=== PATIENT | female | born 1980 | race Caucasian/White ===

== ENCOUNTER → 2019-08-15 | Outpatient (CLI) | payer BC ==
[2015-04-16 04:43] VITALS: BP 131/88
[~2019-08-15] MED LIST: AMIT10TA PO; DIPH25CA58 PO; FLUO40CA9 PO; MULT-246 PO; OMEG300C PO; OMEP20TA63 PO
--- NOTE | 2019-08-15 17:39 | RAD ---
Examination: 1. Left digital diagnostic mammogram. 2. Targeted left breast ultrasound. INDICATION: 39-year-old woman recalled from baseline mammographic screening for asymmetry in the superior left breast best seen on the MLO view. COMPARISON: 08/13/2019 bilateral mammogram. FINDINGS: Additional views of the left breast including CC and ML views with 2-D and 3-D technique and a spot compression MLO view with 2-D technique reveal heterogeneously dense breast parenchyma with no dominant mass, architectural distortion or suspicious calcifications. The asymmetry recalled from screening changed configuration in a pattern compatible with benign overlap of fibroglandular tissue. Given the dense breast tissue, additional imaging by targeted ultrasound of the superior left breast was performed showing dense fibroglandular tissue with no suspicious sonographic findings. IMPRESSION: Negative targeted left breast ultrasound and left diagnostic mammogram. No evidence of malignancy. Recommend return to routine screening next due in one year. BI-RADS Category 1 Negative Patient entered into a reminder system with target due date for next mammogram. BI-RADS 1 -- negative findings (within normal)
== END | disposition home or self-care (01) ==
LOC: MAMMO 14:37
PROVIDERS: ATTEND Specialist
DX: R92.8 Other abnormal and inconclusive findings on diagnostic imaging of breast (principal)
CPT/HCPCS: 76641; 77065; G0279; 77061

== ENCOUNTER 2020-03-24 13:56 | Emergency (ER) | payer BC ==
[~2020-03-24] VITALS: Ht 160 cm; Wt 63.4 kg
[2020-03-24] MEDS ORDERED: LORazepam 1 MG TABLET PO ONE (14:30)
--- NOTE | 2020-03-24 14:31 | PHYS DOC ---
Past History Past Medical History: Anxiety, Depression Past Surgical History: , Tonsillectomy Smoking: Quit Greater Than 1 Year Alcohol Use: Occasionally Drug Use: None General Adult EDM: Chief Complaint: Anxiety HPI: HPI: Patient is a 40 y/o female with a history of anxiety who presents to the ED with feeling anxious and overwhelmed for the past week. She reports she has been having trouble eating and sleeping since then. Patient recently has been having mucous in her stool and has a meeting with a GI specialist coming up, she states that this health concern is causing her to feel anxious and unable to relax. Patient denies SI, HI, or audio/visual hallucinations. Review of Systems: Review of Systems: Constitutional: Denies fever or chills Eyes: Denies redness or eye pain HENT: Denies nasal congestion or sore throat Respiratory: Denies cough or shortness of breath Cardiovascular: Denies chest pain or palpitations GI: Denies abdominal pain, nausea, or vomiting : Denies dysuria or hematuria Musculoskeletal: Denies back pain or joint pain Integument: Denies rash or skin lesions Neurologic: Reports feeling anxious and overwhelmed, Denies headache, focal weakness or sensory changes Complete systems were reviewed and found to be within normal limits, except as documented in this note. Current Medications: Current Meds: Current Medications Medications (Trade) Dose Ordered Sig/Gucci Start Time Stop Time Status Last Admin Dose Admin Lorazepam (Ativan) 0.5 mg 1X ONCE 03/24/20 14:30 03/24/20 14:31 UNV Allergies: Allergies: Allergies Coded Allergies Type Severity Reaction Last Updated Verified sulfamethoxazole Allergy Unknown 06/16/14 No trimethoprim Allergy Unknown 06/16/14 No cefaclor Adverse Reaction Intermediate 06/16/14 Yes Physical Exam: PE: Constitutional: Well developed, well nourished, non-toxic appearance, HENT: Normocephalic, atraumatic Eyes: PERRL, EOMI, conjunctiva normal, no discharge Neck: Normal range of motion, no tenderness, supple Lungs & Thorax: No respiratory distress, equal chest rise and fall Abdomen: Soft, no tenderness Skin: Warm, dry, no erythema, no rash Back: No tenderness, no CVA tenderness Extremities: No tenderness, ROM intact, no edema Neurologic: Alert and oriented X 3, normal motor function, normal sensory function, no focal deficits noted Psychologic: Patient appears tearful on exam EKG: EKG: [] Radiology/Procedures: Radiology/Procedures: [] Course & Med Decision Making: Course & Med Decision Making Patient is a 40-year-old female presents with feeling anxious and overwhelmed. Patient recently has found mucus in her stools and has a GI follow-up. She is worried about possible cancer and has been anxious. Patient was given lorazepam in the ED and improved discussed plan to follow-up with her GI. Patient stable for discharge with outpatient follow-up with PCP. Discussed findings and plan with patient, who acknowledges understanding and agreement. Dragon Disclaimer: Dragon Disclaimer: This electronic medical record was generated, in whole or in part, using a voice recognition dictation system. Departure Departure: Impression: Primary Impression: Anxiety Disposition: 01 DC HOME SELF CARE/HOMELESS Condition: STABLE Referrals: GÓMEZ MORALES MD (PCP) Patient Instructions: Anxiety and Panic Attacks, [id number] Scripts Lorazepam (ATIVAN ) 0.5 Mg Tablet 0.5 MG PO PRN TID PRN for ANXIETY, #10 TAB Prov: АНДРЕЙ TRIMBLE DO 03/24/20 АНДРЕЙ TRIMBLE DO Mar 24, 2020 14:31
[2020-03-24] MEDS ORDERED: LORA0.5T21 PO (15:34)
[2020-03-24 15:46] VITALS: BP 148/101
== END 2020-03-24 15:46 | disposition home or self-care (01) ==
LOC: ER 13:56
DX: F41.9 Anxiety disorder, unspecified (principal); F32.9 Major depressive disorder, single episode, unspecified; Z87.891 Personal history of nicotine dependence; Z88.2 Allergy status to sulfonamides; Z88.1 Allergy status to other antibiotic agents
CPT/HCPCS: 99283

== ENCOUNTER → 2020-04-07 | Outpatient (CLI) | payer BC ==
[2020-03-24 15:46] VITALS: BP 148/101
[~2020-04-07] MED LIST changes: +BUPR150T8 PO; +BUSP10TA PO; +LORA0.5T21 PO
== END ==
LOC: LAB 13:16
PROVIDERS: ATTEND Nurse Anesthetist, Certified Registered
DX: Z01.812 Encounter for preprocedural laboratory examination (principal); K21.9 Gastro-esophageal reflux disease without esophagitis; R13.10 Dysphagia, unspecified; Z20.828 Contact with and (suspected) exposure to other viral communicable diseases
CPT/HCPCS: U0003

== ENCOUNTER → 2020-04-10 | Day surgery (SDC) | payer BC ==
[~2020-04-10] MED LIST changes: +IPRATRPIUM/ALBUTEROL 0.5/2.5MG 3 ML NEBU. NEB PRN; +IV RINGERS SOLUTION,LACTATED 1,000 ML IV SCH; +MIDAZOLAM HCL PF 2 MG/2 ML VIAL. IV ONE; +MIDAZOLAM HCL PF 2 MG/2 ML VIAL. ONE; +ONDANSETRON PF 4 MG/2 ML VIAL. IV PRN; +PROPOFOL 10,000 MCG/ML (20ML) VIAL IV ONE
[2020-04-10 10:27] LABS: U PREG PATIENT NEGATIVE (NEG)
[2020-04-10 11:54] VITALS: BP 126/77
--- NOTE | 2020-04-15 22:09 | PATHOLOGY ---
[facility] Accession Number: [id number] . 01 Material submitted: . PART A: stomach - ANTRUM BIOPSY PART B: esophagus - ESOPHAGEAL BIOPSY PART C: esophagus - PROXIMAL ESOPHAGEAL. Modifiers: proximal . 02 Diagnosis: A. "Antrum BX", biopsy: - Gastric mucosa with mild reactive changes and minimal chronic inflammation. - Negative H. pylori immunohistochemical stain (block A1); control reacted appropriately. . B. "Esophageal BX" biopsy: - Esophageal squamous mucosa with mild reactive changes; no significant inflammation (including eosinophils), glandular epithelium or dysplasia seen. . C. "Proximal esophageal", biopsy: - Esophageal squamous mucosa with mild reactive changes; no significant inflammation (including eosinophils), glandular epithelium or dysplasia seen. ([facility] 04/15/2020) [facility] 04/15/2020 1222 Local . 02 Comment: Clinical and endoscopic correlation is recommended. ([facility] 04/15/2020) . 02 Electronically signed: . Oly Mancera MD, Pathologist NPI- [id number] . 01 Gross description: . A. The specimen is received in formalin, labeled "Santiago, Tasha, antrum BX" and consists of a fragment ramos tissue measuring 0.6 x 0.3 cm which is entirely submitted in A1. . B. The specimen is received in formalin, labeled "Santiago, Tasha, esophageal BX" and consists of a fragment of pink-ramos tissue measuring 0.6 x 0.3 cm which is entirely submitted in B1. . C. The specimen is received in formalin, labeled "Santiago, Tasha, proximal esophagus" and consists of a fragment of pink-ramos tissue measuring 0.4 x 0.2 cm which is entirely submitted in C1. ([facility]; 04/14/2020) [facility] 04/15/2020 1219 Local . 02 Pathologist provided ICD-10: K29.50 . 02 CPT . 936098, 805291, 340431, T11170 Specimen Comment: A courtesy copy of this report has been sent to [phone] Specimen Comment: [phone] Specimen Comment: Report sent to / DR MORALES Performed at: 01 [facility] [address], [place] [id number] MD Jaime Connors MD Phone: [phone] Performed at: 02 [facility] [address] [place], [place] [id number] MD Keyur Stevens MD Phone: [phone]
== END | disposition home or self-care (01) ==
LOC: SURG 09:47
PROVIDERS: ATTEND Internal Medicine Gastroenterology
DX: R13.10 Dysphagia, unspecified (principal); R12 Heartburn; K44.9 Diaphragmatic hernia without obstruction or gangrene; K22.2 Esophageal obstruction; K29.50 Unspecified chronic gastritis without bleeding; F41.9 Anxiety disorder, unspecified; F32.9 Major depressive disorder, single episode, unspecified; K21.9 Gastro-esophageal reflux disease without esophagitis; Z88.2 Allergy status to sulfonamides; Z88.1 Allergy status to other antibiotic agents; Z88.8 Allergy status to other drugs, medicaments and biological substances; Z98.890 Other specified postprocedural states; Z87.891 Personal history of nicotine dependence; Z79.899 Other long term (current) drug therapy; Z72.89 Other problems related to lifestyle; Z82.49 Family history of ischemic heart disease and other diseases of the circulatory system
CPT/HCPCS: 43239; 43450; 81025; J2250; J2704; J7120

== ENCOUNTER 2020-09-21 22:44 | Emergency (ER) | payer BC ==
[~2020-09-21] VITALS: Ht 162.6 cm; Wt 65.3 kg
[~2020-09-21 22:44] MED LIST changes: -IPRATRPIUM/ALBUTEROL 0.5/2.5MG 3 ML NEBU. NEB PRN; -IV RINGERS SOLUTION,LACTATED 1,000 ML IV SCH; -MIDAZOLAM HCL PF 2 MG/2 ML VIAL. IV ONE; -MIDAZOLAM HCL PF 2 MG/2 ML VIAL. ONE; -ONDANSETRON PF 4 MG/2 ML VIAL. IV PRN; -PROPOFOL 10,000 MCG/ML (20ML) VIAL IV ONE
--- NOTE | 2020-09-21 23:08 | PHYS DOC ---
Past History Past Medical History: Anxiety, Depression, GERD Past Surgical History: Hysterectomy, Other Additional Past Surgical Histo: colonoscopy- polyp removed Smoking: Quit Greater Than 1 Year Alcohol Use: Occasionally Drug Use: None General Adult EDM: Chief Complaint: VAGINAL BLEEDING HPI: HPI: "..I had a hysterectomy on 08/27 in [place]... I had some high risk cervical lesions and they recommended hysterectomy... Everything went fine after the surgery and I have been taking ibuprofen for discomfort.... Patient started noticed some spotting past week... But now has active bleeding vaginally and some large blood clots.... Patient is a 40 year old female who presents with above hx and complaints of increased bleeding with discomfort post hysterectomy on 08/27. Patient had the hysterectomy in [facility] completed by . Patient did talk to the surgeon on-call tonight and advised her to go to the emergency department. Patient is not on any anticoagulants and has no history of coagulopathy. Patient has been taking 800 mg of ibuprofen every 8 hours. Patient denies any trauma. No sexual activity since surgery. No history of trauma. . The patient denies any history of immune suppression. No recent travel outside the [facility] area. Normally healthy. Covid test was negative for surgery on 08/27. Patient normally follows with Dr. Lewis. Review of Systems: Review of Systems: Constitutional: Denies fever or chills Eyes: Denies change in visual acuity HENT: Denies nasal congestion or sore throat Respiratory: Denies cough or shortness of breath Cardiovascular: Denies chest pain or edema GI: Denies abdominal pain, nausea, vomiting, bloody stools or diarrhea : Denies dysuria. Complains of vaginal bleeding Musculoskeletal: Denies back pain or joint pain Integument: Denies rash Neurologic: Denies headache, focal weakness or sensory changes Endocrine: Denies polyuria or polydipsia Lymphatic: Denies swollen glands Psychiatric: Denies depression or anxiety Family History: Family History: Mother has hypercoagulability-pulmonary embolism Current Medications: Current Meds: See nursing for home meds Allergies: Allergies: Allergies Coded Allergies Type Severity Reaction Last Updated Verified iodine Allergy Severe swelling 09/21/20 Yes sulfamethoxazole Allergy Intermediate 09/21/20 No trimethoprim Allergy Intermediate 09/21/20 No cefaclor Adverse Reaction Unknown 09/21/20 Yes Physical Exam: PE: Constitutional: Well developed, well nourished, moderate acute distress, non- toxic appearance. [] HENT: Normocephalic, atraumatic, bilateral external ears normal, oropharynx moist, no oral exudates, nose normal. [] Eyes: PERRLA, EOMI, conjunctiva normal, no discharge. [] Neck: Normal range of motion, no tenderness, supple, no stridor. [] Cardiovascular:Heart rate regular rhythm, no murmur [] Lungs & Thorax: Bilateral breath sounds clear to auscultation [] Abdomen: Bowel sounds normal, soft, lower pelvic tenderness, no masses, no pulsatile masses. [] Vaginal exam-active bleeding along the vaginal cuff. Soaked approximately sixteen 4 x 4's. Vaginal packed with Kerlix x2. Reexam in approximately 0330 hrs. still having bleeding along vaginal cuff repacked with 1 Kerlix soaked in Tranexamic Acid. Post surgical cuff appeared to be grossly intact. Skin: Warm, dry, no erythema, no rash. [] Capillary refill less than 2 seconds in fingers. Back: No tenderness, no CVA tenderness. [] Extremities: No tenderness, no cyanosis, no clubbing, ROM intact, no edema. [] Neurologic: Alert and oriented X 3, normal motor function, normal sensory function, no focal deficits noted. [] Psychologic: Affect anxious, judgement normal, mood normal. [] Current Patient Data: Vital Signs: Vital Signs Date Time Temp Pulse Resp B/P (MAP) Pulse Ox O2 Delivery O2 Flow Rate FiO2 09/21/20 22:52 98.2 90 18 157/103 (121) 96 Room Air EKG: EKG: [] Radiology/Procedures: Radiology/Procedures: [address] [address] IMAGING REPORT Signed PATIENT: GRAY CORONADO ACCOUNT: [id number] : 1980 LOCATION: ER AGE: 40 SEX: F EXAM STATUS: REG ER ORD. PHYSICIAN: VERN CHAN MD REASON: pain PROCEDURE: ACUTE ABDOMEN SERIES Acute Abdominal Series: Technique: PA view of the chest and supine and upright views of the abdomen were obtained. History: Pain. Comparison: None. Findings: The lungs and pleural margins are clear. There is air and stool scattered throughout the colon. There is a paucity small bowel gas. There is no free air. Impression: Constipation. Electronically signed by: Shahzad Murillo III, MD (09/22/2020 12:49 AM) [facility] DICTATED AND SIGNED BY: SHAHZAD MURILLO III, MD DATE: 09/22/20 0049 CC: VERN CHAN MD; GÓMEZ LEWIS MD ~MTH0 0 [][address] [address] IMAGING REPORT Signed PATIENT: GRAY CORONADO ACCOUNT: [id number] : 1980 LOCATION: ER AGE: 40 SEX: F EXAM STATUS: REG ER ORD. PHYSICIAN: VERN CHAN MD REASON: pain- post surgery, 900ml READI-CAT2 PROCEDURE: CT ABD PEL W/ORAL CONTRST ONLY Abdominal and Pelvis CT, Without Contrast: History: Reason: pain- post surgery, 900ml READI-CAT2 / Spl. Instructions: iodine allergy / History: Comparison: None. Procedure: Axial images are obtained of the abdomen and pelvis, without IV but with oral contrast. Oral Contrast: Yes Findings: Evaluation of solid organs is limited without contrast. There is air and stool scattered the colon. The uterus is not seen and may be surgically removed however there is distention of the vaginal vault there is debris which could be packing. The urinary bladder is fairly distended but otherwise appears normal. The appendix is normal. The gallbladder is not fully distended but appears normal. There is a 4.3 x 3.1 cm left adnexal cyst. Liver: Normal. Spleen: Normal. Pancreas: Normal. Adrenal Glands: Normal. Kidneys: Normal. There is no free air or free fluid. There is no lymphadenopathy. There is no pericolonic inflammation identified. Impression: 1. The urinary bladder is fully distended measuring 14.6 x 10.9 x 13.1 cm. Consider post op urinary retention. 2. Left ovarian cyst is seen in the November 11, 2015 ultrasound examination. Consider a 6 month follow-up ultrasound. 3. Probable hysterectomy with packing of the vaginal vault. Correlate with patient's surgical history. 4. Constipation. End impression PQRS Compliance Statement: One or more of the following individualized dose reduction techniques were utilized for this examination: 1. Automated exposure control 2. Adjustment of the mA and/or kV according to patient size 3. Use of iterative reconstruction technique Electronically signed by: Shahzad Murillo III, MD (09/22/2020 2:51 AM) [facility] DICTATED AND SIGNED BY: SHAHZAD MURILLO III, MD DATE: 09/22/20 0244 CC: VERN HCAN MD; GÓMEZ LEWIS MD ~MTH0 0 Heart Score: C/O Chest Pain: N/A Risk Factors: Risk Factors: DM, Current or recent (<one month) smoker, HTN, HLP, family his tory of CAD, obesity. Risk Scores: Score 0 - 3: 2.5% MACE over next 6 weeks - Discharge Home Score 4 - 6: 20.3% MACE over next 6 weeks - Admit for Clinical Observation Score 7 - 10: 72.7% MACE over next 6 weeks - Early Invasive Strategies Course & Med Decision Making: Course & Med Decision Making Pertinent Labs and Imaging studies reviewed. (See chart for details) Discussed history, presentation, testing and treatment plan with Dr. Smith salesperson women's dresses for Dr. Meléndez. Report also given to Dr. Hari ROBERSON at [facility]- in the event patient became unstable on her direct admit to surgical floor. Trial of traneamic acid 1000 mg IV and Vaginal area packed with Kerlex soaked in 1000mg . Impression: 1. Vaginal Bleeding Post hysterectomy on 08/27/2020 2. Rapid COVID negative tonight [] Dragon Disclaimer: Dragon Disclaimer: This electronic medical record was generated, in whole or in part, using a voice recognition dictation system. Departure Departure: Referrals: GÓMEZ LEWIS MD (PCP) Karthik Disclaimer This chart was dictated in whole or in part using Voice Recognition software in a busy, high-work load, and often noisy Emergency Department environment. It may contain unintended and wholly unrecognized errors or omissions. Dragon Disclaimer This chart was dictated in whole or in part using Voice Recognition software in a busy, high-work load, and often noisy Emergency Department environment. It may contain unintended and wholly unrecognized errors or omissions. VERN CHAN MD Sep 21, 2020 23:07
[2020-09-21] MEDS ORDERED: IV RINGERS SOLUTION,LACTATED 1,000 ML IV SCH (23:30)
[2020-09-22 00:11] LABS: BASO # 0.2 x10^3/uL (0.0-0.2); BASO % 2 % (0-3); EOS # 1.1 x10^3/uL (0.0-0.7); EOS % 13 % (0-3); HEMOGLOBIN 12.1 g/dL (12.0-15.5); LYMPH % 44 % (24-48); MEAN CORPUSCULAR HEMOGLOBIN 31 pg (25-35); MEAN CORPUSCULAR HGB CONC 34 g/dL (31-37); MEAN CORPUSCULAR VOLUME 91 fL (79-100); MONO # 0.6 x10^3/uL (0.0-1.1); MONO % 7 % (0-9); NEUT # 3.1 x10^3uL (1.8-7.7); NEUT % 34 % (31-73); PLATELET COUNT 406 x10^3/uL (140-400); RED BLOOD COUNT 3.84 x10^6/uL (3.50-5.40); WHITE BLOOD COUNT 8.9 x10^3/uL (4.0-11.0)
[2020-09-22 00:24] LABS: BILIRUBIN,URINE NEG (NEG); CLARITY,URINE CLEAR; COLOR,URINE YELLOW; GLUCOSE,URINE NEG (NEG); NITRITE,URINE NEG (NEG); UROBILINOGEN,URINE 0.2 mg/dL (0.2 mg/dL)
[2020-09-22 00:25] LABS: BACTERIA,URINE 0 /HPF (0-FEW); SQUAMOUS EPITHELIAL CELL,UR OCC /LPF; WBC,URINE OCC /HPF (0-4)
[2020-09-22] MEDS ORDERED: BARIUM SULFATE 2.1% 450 ML SUSP PO ONE (00:30)
[2020-09-22 00:41] LABS: CREATININE 0.8 mg/dL (0.6-1.0)
[2020-09-22 00:43] LABS: BARBITURATES NEG (NEG); BENZODIAZEPINES NEG (NEG); CANNABINOIDS NEG (NEG); COCAINE NEG (NEG); METHADONE NEG (NEG); OPIATES NEG (NEG); PHENCYCLIDINE NEG (NEG)
[2020-09-22 00:48] LABS: AMPHETAMINE/METHAMPHETAMINE NEG (NEG)
[2020-09-22 00:51] LABS: ALBUMIN 3.8 g/dL (3.4-5.0); DIRECT BILIRUBIN 0.1 mg/dL (0.0-0.2); TOTAL BILIRUBIN 0.4 mg/dL (0.2-1.0); TOTAL PROTEIN 7.1 g/dL (6.4-8.2)
--- NOTE | 2020-09-22 00:52 | RAD ---
Acute Abdominal Series: Technique: PA view of the chest and supine and upright views of the abdomen were obtained. History: Pain. Comparison: None. Findings: The lungs and pleural margins are clear. There is air and stool scattered throughout the colon. There is a paucity small bowel gas. There is no free air. Impression: Constipation. Electronically signed by: Martinez Lorenzana III, MD (09/22/2020 12:49 AM) [facility]
--- NOTE | 2020-09-22 02:53 | RAD ---
Abdominal and Pelvis CT, Without Contrast: History: Reason: pain- post surgery, 900ml READI-CAT2 / Spl. Instructions: iodine allergy / History: Comparison: None. Procedure: Axial images are obtained of the abdomen and pelvis, without IV but with oral contrast. Oral Contrast: Yes Findings: Evaluation of solid organs is limited without contrast. There is air and stool scattered the colon. The uterus is not seen and may be surgically removed patricia ifrah there is distention of the vaginal vault there is debris which could be packing. The urinary bladder is fairly distended but otherwise appears normal. The appendix is normal. The gallbladder is not fully distended but appears normal. There is a 4.3 x 3.1 cm left adnexal cyst. Liver: Normal. Spleen: Normal. Pancreas: Normal. Adrenal Glands: Normal. Kidneys: Normal. There is no free air or free fluid. There is no lymphadenopathy. There is no pericolonic inflammation identified. Impression: 1. The urinary bladder is fully distended measuring 14.6 x 10.9 x 13.1 cm. Consider post op urinary r etention. 2. Left ovarian cyst is seen in the November 11, 2015 ultrasound examination. Consider a 6 month follow-up ultrasound. 3. Probable hysterectomy with packing of the vaginal vault. Correlate with patient's surgical history . 4. Constipation. End impression PQRS Compliance Statement: One or more of the following individualized dose reduction techniques were utilized for this examinat ion: 1. Automated exposure control 2. Adjustment of the mA and/or kV according to patient size 3. Use of iterative reconstruction technique Electronically signed by: Martinez Lorenzana III, MD (09/22/2020 2:51 AM) [facility]
[2020-09-22] MEDS ORDERED: IV NORMAL SALINE 250ML 250 ML ONE (02:54)
[2020-09-22] MEDS ORDERED: TRANEXAMIC ACID 1,000 MG/10 ML VIAL. ONE (02:54)
[2020-09-22 03:04] LABS: HEMATOCRIT 35.4 % (36.0-47.0); RED BLOOD COUNT 3.85 x10^6/uL (3.50-5.40); RED CELL DISTRIBUTION WIDTH 13.1 % (11.5-14.5); WHITE BLOOD COUNT 10.7 x10^3/uL (4.0-11.0)
[2020-09-22] MEDS ORDERED: TRANEXAMIC ACID 1,000 MG/10 ML VIAL. TOP ONE (03:30)
[2020-09-22] MEDS ORDERED: TRANEXAMIC ACID 1,000 MG in IV NORMAL SALINE 250ML 250 ML IV ONE (03:30)
[2020-09-22] MEDS ORDERED: IV RINGERS SOLUTION,LACTATED 1,000 ML IV ONE (04:30)
[2020-09-22 04:42] VITALS: BP 122/81
[2020-09-23 17:07] LABS: CHLAMYDIA PROBE Negative (Negative)
== END 2020-09-22 05:13 | disposition short-term general hospital (02) ==
LOC: ER 22:44
DX: N93.8 Other specified abnormal uterine and vaginal bleeding (principal); Z20.822 Contact with and (suspected) exposure to COVID-19; K21.9 Gastro-esophageal reflux disease without esophagitis; Z87.891 Personal history of nicotine dependence; Z90.710 Acquired absence of both cervix and uterus; Z88.1 Allergy status to other antibiotic agents; Z88.2 Allergy status to sulfonamides; Z88.8 Allergy status to other drugs, medicaments and biological substances
CPT/HCPCS: 36415; 74022; 74176; 80048; 80076; 80307; 81001; 83690; 85025; 85027; 85610; 85730; 87426; 87491; 87591; 96361; 96365; 96366; 96375; 99285; J2060; J3010; J7050; J7120; U0003; C9803; U0005

== ENCOUNTER → 2021-01-01 | Day surgery (SDC) | payer BC ==
[~2021-01-01] MED LIST changes: +IPRATRPIUM/ALBUTEROL 0.5/2.5MG 3 ML NEBU. NEB PRN; +IV RINGERS SOLUTION,LACTATED 1,000 ML IV SCH; +LIDOCAINE 2% PF 5 ML VIAL. ONE; +MIDAZOLAM HCL PF 2 MG/2 ML VIAL. IV ONE; +ONDANSETRON PF 4 MG/2 ML VIAL. IV PRN; +PROPOFOL 10,000 MCG/ML (20ML) VIAL IV ONE
[2021-01-01 12:52] VITALS: BP 147/102
--- NOTE | 2021-01-05 14:07 | PATHOLOGY ---
[facility] Accession Number: [id number] . 01 Material submitted: . rectum - RECTAL POLYP BIOPSY . 01 Clinical history: . SCREENING COLONOSCOPY . 02 Diagnosis: Colorectal biopsy, rectal polyp: - Hyperplastic polyp. ([facility] 01/05/2021) [facility] 01/05/2021 0902 Local . 02 Comment: There are no adenomatous changes or evidence of malignancy. ([facility] 01/05/2021) . 02 Electronically signed: . Keyur Stevens MD, Pathologist NPI- [id number] . 01 Gross description: . The specimen is received in formalin, labeled "Santiago, Tasha, rectal polyp biopsy". Received is a single segment of pale ramos tissue measuring 0.4 cm in maximum dimensions. The specimen is submitted entirely in cassette A1. ([facility]; 01/04/2021) [facility] 01/04/2021 1738 Local . 02 Pathologist provided ICD-10: K62.1 . 02 CPT . 971030 Specimen Comment: A courtesy copy of this report has been sent to [phone] Specimen Comment: [phone] Specimen Comment: Report sent to / DR MORALES Performed at: 01 [facility] [address], [place], [place] [id number] MD Jaime Connors MD Phone: [phone] Performed at: 02 [facility] [address] [place], [place] [id number] MD Keyur Stevens MD Phone: [phone]
== END | disposition home or self-care (01) ==
LOC: SURG 11:03
PROVIDERS: ATTEND Internal Medicine Gastroenterology
DX: Z12.11 Encounter for screening for malignant neoplasm of colon (principal); K62.1 Rectal polyp; K64.8 Other hemorrhoids; K57.30 Diverticulosis of large intestine without perforation or abscess without bleeding; K64.1 Second degree hemorrhoids; K64.5 Perianal venous thrombosis; F32.9 Major depressive disorder, single episode, unspecified; F41.9 Anxiety disorder, unspecified; Z79.899 Other long term (current) drug therapy; Z72.89 Other problems related to lifestyle; Z98.890 Other specified postprocedural states; Z90.710 Acquired absence of both cervix and uterus; Z88.8 Allergy status to other drugs, medicaments and biological substances; Z82.49 Family history of ischemic heart disease and other diseases of the circulatory system
CPT/HCPCS: 45380; J2001; J2704

== ENCOUNTER → 2021-08-27 | Outpatient (CLI) | payer BC ==
[2021-01-01 12:52] VITALS: BP 147/102
[~2021-08-27] MED LIST changes: -IPRATRPIUM/ALBUTEROL 0.5/2.5MG 3 ML NEBU. NEB PRN; -IV RINGERS SOLUTION,LACTATED 1,000 ML IV SCH; -LIDOCAINE 2% PF 5 ML VIAL. ONE; -MIDAZOLAM HCL PF 2 MG/2 ML VIAL. IV ONE; -ONDANSETRON PF 4 MG/2 ML VIAL. IV PRN; -PROPOFOL 10,000 MCG/ML (20ML) VIAL IV ONE
--- NOTE | 2021-08-31 13:08 | RAD ---
BILATERAL DIGITAL SCREENING 2-D AND 3-D MAMMOGRAM INDICATION: Routine screening. No breast history sheet was included for review. COMPARISON: 3-D screening bilateral mammogram dated August 19, 2020 and C view only bilateral mammogr am dated August 13, 2019. Interpretation was made using CAD. FINDINGS: Breast Density: The breasts are heterogeneously dense, which may obscure small masses. RIGHT BREAST: No suspicious masses, calcifications or areas of architectural distortion are seen. LEFT BREAST: No suspicious masses, calcifications or areas of architectural distortion are seen. IMPRESSION: 1. No imaging evidence of malignancy. ASSESSMENT: BI-RADS 1. Negative. RECOMMENDATION: Routine annual screening mammogram. The facility will notify the patient of the results via mail. Patient information will be entered int o the mammography reminder system with a target recall date for the next mammogram. A reminder letter will be generated by the facility. Electronically signed by: Huong Busby MD (08/31/2021 1:06 PM) [id number]
== END ==
LOC: MAMMO 14:54
PROVIDERS: ATTEND Specialist
DX: Z12.31 Encounter for screening mammogram for malignant neoplasm of breast (principal)
CPT/HCPCS: 77063; 77067

== ENCOUNTER 2021-09-03 17:53 | Emergency (ER) | payer BC ==
[~2021-09-03] VITALS: Ht 167.6 cm; Wt 66.0 kg
--- NOTE | 2021-09-03 18:57 | PHYS DOC ---
Past History Past Medical History: Anxiety, Depression, GERD Past Surgical History: Hysterectomy, Other Additional Past Surgical Histo: colonoscopy- polyp removed Smoking: Quit Greater Than 1 Year Alcohol Use: Occasionally Drug Use: None General Adult EDM: Chief Complaint: SHORTNESS OF BREATH HPI: HPI: 41-year-old female presents with shortness of breath. The patient's been having the feeling of shortness of breath for about a week and a half. It is worse today and that he has why she decided to come in. She used her albuterol inhaler 30 minutes prior to arrival. Patient keeps albuterol for occasional use, mostly with exercise. She has been using it daily or few times a day since her increase shortness of breath the last week. She denies fever or chills. No history of heart disease. No family history of early heart disease. Review of Systems: Review of Systems: Constitutional: Denies fever or chills Eyes: Denies change in visual acuity HENT: Denies nasal congestion or sore throat Respiratory: Denies cough or shortness of breath Cardiovascular: Denies chest pain or edema GI: Denies abdominal pain, nausea, vomiting, bloody stools or diarrhea : Denies dysuria Musculoskeletal: Denies back pain or joint pain Integument: Denies rash Neurologic: Denies headache, focal weakness or sensory changes Endocrine: Denies polyuria or polydipsia Lymphatic: Denies swollen glands Psychiatric: Denies depression or anxiety Allergies: Allergies: Allergies Coded Allergies Type Severity Reaction Last Updated Verified iodine Allergy Severe swelling 09/03/21 Yes sulfamethoxazole Allergy Intermediate 09/03/21 No trimethoprim Allergy Intermediate 09/03/21 No latex Allergy Unknown 09/03/21 Yes cefaclor Adverse Reaction Unknown 09/03/21 Yes Physical Exam: PE: Constitutional: Well developed, well nourished, no acute distress, non-toxic appearance. [] HENT: Normocephalic, atraumatic, bilateral external ears normal, oropharynx moist, no oral exudates, nose normal. [] Eyes: PERRLA, EOMI, conjunctiva normal, no discharge. [] Neck: Normal range of motion, no tenderness, supple, no stridor. [] Cardiovascular: Heart rate 95, regular rhythm, no murmur [] Lungs & Thorax: Bilateral breath sounds clear to auscultation [] Abdomen: Bowel sounds normal, soft, no tenderness, no masses, no pulsatile masses. [] Skin: Warm, dry, no erythema, no rash. [] Back: No tenderness, no CVA tenderness. [] Extremities: No tenderness, no cyanosis, no clubbing, ROM intact, no edema. [] Neurologic: Alert and oriented X 3, normal motor function, normal sensory function, no focal deficits noted. [] Psychologic: Affect normal, judgement normal, mood normal. [] Current Patient Data: Vital Signs: Vital Signs Date Time Temp Pulse Resp B/P (MAP) Pulse Ox O2 Delivery O2 Flow Rate FiO2 09/03/21 18:12 98.0 115 18 147/110 (122) 98 Room Air EKG: EKG: Sinus rhythm, rate 83, normal axis, no ST elevation or depression. [] Radiology/Procedures: Radiology/Procedures: [] Impressions: Exam Date: 09/03/2021 6:50 PM XR CHEST 1V Indication: Reason: SOB, X 2 DAYS / Spl. Instructions: / History: . FINDINGS/ IMPRESSION: The cardiac silhouette and pulmonary vasculature are within normal limits. There is no focal consolidation, pleural effusion or pneumothorax. The visualized osseous structures are intact. Electronically signed by: Pepe Senior MD (09/03/2021 7:06 PM) [facility] DICTATED AND SIGNED BY: PEPE SENIOR MD DATE: 09/03/211903 CC: DAKOTA OWENS DO; GÓMEZ MORALES MD ~ Heart Score: C/O Chest Pain: Yes HEART Score for Chest Pain: HEART Score for Chest Pain Response (Comments) Value History Slighlty/Non-Suspicious 0 Age < 45 0 Risk Factors No Risk Factors 0 Total 0 Risk Factors: Risk Factors: DM, Current or recent (<one month) smoker, HTN, HLP, family history of CAD, obesity. Risk Scores: Score 0 - 3: 2.5% MACE over next 6 weeks - Discharge Home Score 4 - 6: 20.3% MACE over next 6 weeks - Admit for Clinical Observation Score 7 - 10: 72.7% MACE over next 6 weeks - Early Invasive Strategies Course & Med Decision Making: Course & Med Decision Making Pertinent Labs and Imaging studies reviewed. (See chart for details) The patient's EKG is unremarkable. Chest x-ray is negative for acute findings. Her labs are unremarkable. Her troponin is negative. I do not see any life- threatening cardiopulmonary complication at this time. It is possible that patient had COVID-19 but tested negative. This could be prolonged effects. Could be due to another viral syndrome or deconditioning. I have advised that she follow-up with her primary physician if symptoms do not improve. If they worsen significantly she is welcome to come back to the emergency room. She is stable for discharge at this time. [] Dragon Disclaimer: Dragon Disclaimer: This electronic medical record was generated, in whole or in part, using a voice recognition dictation system. Departure Departure: Impression: Primary Impression: Shortness of breath Disposition: HOME / SELF CARE / HOMELESS Condition: STABLE Referrals: GÓMEZ MORALES MD (PCP) Patient Instructions: Shortness of Breath, [id number] DAKOTA OWENS DO Sep 03, 2021 18:57
--- NOTE | 2021-09-03 19:08 | RAD ---
Exam Date: 09/03/2021 6:50 PM XR CHEST 1V Indication: Reason: SOB, X 2 DAYS / Spl. Instructions: / History: . FINDINGS/ IMPRESSION: The cardiac silhouette and pulmonary vasculature are within normal limits. There is no focal consolidation, pleural effusion or pneumothorax. The visualized osseous structures are intact. Electronically signed by: Cal Senior MD (09/03/2021 7:06 PM) [facility]
[2021-09-03 19:27] LABS: BASO # 0.1 x10^3/uL (0.0-0.2); BASO % 1 % (0-3); EOS # 0.2 x10^3/uL (0.0-0.7); EOS % 1 % (0-3); HEMATOCRIT 37.6 % (36.0-47.0); HEMOGLOBIN 12.9 g/dL (12.0-15.5); LYMPH # 2.5 x10^3/uL (1.0-4.8); LYMPH % 23 % (24-48); MEAN CORPUSCULAR HEMOGLOBIN 31 pg (25-35); MEAN CORPUSCULAR HGB CONC 34 g/dL (31-37); MEAN CORPUSCULAR VOLUME 91 fL (79-100); MONO # 0.9 x10^3/uL (0.0-1.1); MONO % 9 % (0-9); NEUT # 7.3 x10^3uL (1.8-7.7); NEUT % 66 % (31-73); PLATELET COUNT 347 x10^3/uL (140-400); RED BLOOD COUNT 4.12 x10^6/uL (3.50-5.40)
[2021-09-03 19:40] LABS: CREATININE 0.6 mg/dL (0.6-1.0); GFR 109.6; POTASSIUM 3.7 mmol/L (3.5-5.1)
[2021-09-03 19:47] LABS: ALBUMIN/GLOBULIN RATIO 1.5 (1.0-1.7); TOTAL BILIRUBIN 0.6 mg/dL (0.2-1.0); TOTAL PROTEIN 6.6 g/dL (6.4-8.2)
[2021-09-03 20:14] VITALS: BP 128/78
--- NOTE | 2021-09-03 23:48 | EKG ---
[address] [address] Test Date: 2021-09-03 Test Time: 19:36:48 Pat Name: GRAY ROBERSON Department: Room: Gender: F Medical Sales Associate: : 1980 Requested By: DAKOTA OWENS Order Number: [id number] Reading MD: Nikolay Buckner MD Measurements Intervals [place] Rate: 83 P: 51 IA: 148 QRS: 55 QRSD: 90 T: 34 QT: 366 QTc: 436 Interpretive Statements SINUS RHYTHM Electronically Signed On 09-07-2021 7:14:23 CDT by Nikolay Buckner MD
== END 2021-09-03 20:15 | disposition home or self-care (01) ==
LOC: ER 17:53
DX: R06.02 Shortness of breath (principal); F41.9 Anxiety disorder, unspecified; F32.9 Major depressive disorder, single episode, unspecified; K21.9 Gastro-esophageal reflux disease without esophagitis; Z87.891 Personal history of nicotine dependence; Z88.8 Allergy status to other drugs, medicaments and biological substances; Z88.2 Allergy status to sulfonamides; Z91.040 Latex allergy status; Z88.1 Allergy status to other antibiotic agents
CPT/HCPCS: 36415; 71045; 80053; 84484; 85025; 93005; 99285

== ENCOUNTER 2021-09-17 11:15 | Emergency (ER) | payer BC ==
[~2021-09-17] VITALS: Ht 167.6 cm; Wt 64.5 kg
[2021-09-17] MEDS ORDERED: IV NORMAL SALINE 1,000ML 1,000 ML IV SCH (11:45)
--- NOTE | 2021-09-17 11:46 | PHYS DOC ---
Past History Past Medical History: Anxiety, Depression, GERD (KEESHA LEMUS APRN) Past Surgical History: Hysterectomy, Other Additional Past Surgical Histo: colonoscopy- polyp removed (KEESHA LEMUS APRN) Smoking: Quit Greater Than 1 Year Alcohol Use: Occasionally Drug Use: None (KEESHA LEMUS APRN) General Adult EDM: Chief Complaint: ABDOMINAL PAIN HPI: HPI: Patient is a 41-year-old female who presents to the emergency department today for right lower quadrant pain that started 1 week ago. She reports that the pain radiates to her groin and to her right flank. She reports that the pain is worse when she urinates, has a bowel movement or with intercourse. She rates her pain 6 out of 10 and describes it as a sharp pain. She saw her primary care provider who believe that she was experiencing interstitial cystitis and she has been taking Azo and ibuprofen without relief in her symptoms. Hysterectomy and colonoscopy 1 year ago. She last took 800 mg of ibuprofen this morning at 8 AM. Patient has a history of anxiety and has had a hysterectomy. Patient denies nausea, vomiting, diarrhea, dysuria, hematuria, sick exposures, fevers, blood in her stools, hard stools or constipation, vaginal discharge or concern for STDs. (KEESHA LEMUS APRN) Review of Systems: Review of Systems: Constitutional: See HPI GI: See HPI : See HPI Musculoskeletal: See HPI Psychiatric: See HPI (KEESHA LEMUS APRN) Current Medications: Current Meds: Current Medications Medications (Trade) Dose Ordered Sig/[facility] Start Time Stop Time Status Last Admin Dose Admin Fentanyl Citrate (Fentanyl 2ml Vial) 50 mcg 1X ONCE 09/17/21 11:45 09/17/21 11:46 UNV Sodium Chloride 1,000 ml @ 1,000 mls/hr Q1H 09/17/21 11:45 09/17/21 12:44 UNV (KEESHA LEMUS APRN) Allergies: Allergies: Allergies Coded Allergies Type Severity Reaction Last Updated Verified iodine Allergy Severe swelling 09/03/21 Yes sulfamethoxazole Allergy Intermediate 09/03/21 No trimethoprim Allergy Intermediate 09/03/21 No latex Allergy Unknown 09/03/21 Yes cefaclor Adverse Reaction Unknown 09/03/21 Yes (KEESHA LEMUS APRN) Physical Exam: PE: Constitutional: Well developed, well nourished, no acute distress, non-toxic appearance. [] HENT: Normocephalic, atraumatic, bilateral external ears normal, oropharynx moist, no oral exudates, nose normal. [] Eyes: PERRL, EOMI, conjunctiva normal, no discharge. [] Neck: Normal range of motion, no stridor Cardiovascular:Heart rate regular rhythm, no murmur [] Lungs & Thorax: Bilateral breath sounds clear to auscultation [] Abdomen: Bowel sounds normal, soft, suprapubic tenderness with palpation, no abdominal guarding or rigidity, no masses, no pulsatile masses. [] Skin: Warm, dry, no erythema, no rash. [] Back: No tenderness, no CVA tenderness. [] Extremities: No tenderness, no cyanosis, no clubbing, ROM intact, no edema. [] Neurologic: Alert and oriented X 3, normal motor function, normal sensory function, no focal deficits noted. [] Psychologic: Affect normal, judgement normal, mood normal. [] (KEESHA LEMUS APRN) Current Patient Data: Labs: Laboratory Tests Test 09/17/21 11:20 09/17/21 11:55 Urine Collection Type Unknown Urine Color Yellow Urine Clarity Clear Urine pH 7.0 Urine Specific [place] 1.015 Urine Protein Neg Urine Glucose (UA) Neg mg/dL Urine Ketones (Stick) Neg mg/dL Urine Blood Neg Urine Nitrite Neg Urine Bilirubin Neg Urine Urobilinogen Dipstick 0.2 mg/dL Urine Leukocyte Esterase Neg Urine RBC 0 /HPF Urine WBC 0 /HPF Urine Squamous Epithelial Cells Few /LPF Urine Bacteria Few /HPF White Blood Count 7.0 x10^3/uL Red Blood Count 4.17 x10^6/uL Hemoglobin 12.9 g/dL Hematocrit 38.2 % Mean Corpuscular Volume 92 fL Mean Corpuscular Hemoglobin 31 pg Mean Corpuscular Hemoglobin Concent 34 g/dL Red Cell Distribution Width 12.5 % Platelet Count 445 x10^3/uL Neutrophils (%) (Auto) 59 % Lymphocytes (%) (Auto) 32 % Monocytes (%) (Auto) 6 % Eosinophils (%) (Auto) 2 % Basophils (%) (Auto) 1 % Neutrophils # (Auto) 4.1 x10^3uL Lymphocytes # (Auto) 2.2 x10^3/uL Monocytes # (Auto) 0.4 x10^3/uL Eosinophils # (Auto) 0.1 x10^3/uL Basophils # (Auto) 0.1 x10^3/uL Sodium Level 138 mmol/L Potassium Level 4.0 mmol/L Chloride Level 102 mmol/L Carbon Dioxide Level 30 mmol/L Anion Gap 6 Blood Urea Nitrogen 6 mg/dL Creatinine 0.6 mg/dL Estimated GFR (Cockcroft-Gault) 109.6 BUN/Creatinine Ratio 10 Glucose Level 86 mg/dL Calcium Level 9.1 mg/dL Total Bilirubin 0.7 mg/dL Aspartate Amino Transf (AST/SGOT) 16 U/L Alanine Aminotransferase (ALT/SGPT) 26 U/L Alkaline Phosphatase 48 U/L Total Protein 6.9 g/dL Albumin 3.8 g/dL Albumin/Globulin Ratio 1.2 Lipase 57 U/L Current Medications Medications (Trade) Dose Ordered Sig/[facility] Route PRN Reason Start Time Stop Time Status Last Admin Dose Admin Sodium Chloride 1,000 ml @ 1,000 mls/hr Q1H IV 09/17/21 11:45 09/17/21 12:44 DC 09/17/21 12:03 Fentanyl Citrate (Fentanyl 2ml Vial) 50 mcg 1X ONCE IVP 09/17/21 11:45 09/17/21 11:46 DC 09/17/21 12:05 Lorazepam (Ativan Inj) 1 mg 1X ONCE IVP 09/17/21 12:45 09/17/21 12:46 DC 09/17/21 12:45 (KEESHA LEMUS APRN) EKG: EKG: [] (KEESHA LEMUS APRN) Radiology/Procedures: Radiology/Procedures: []REASON: rlq pain, PROCEDURE: CT ABDOMEN PELVIS WO CONTRAST EXAMINATION: CT ABDOMEN+PELVIS WO CLINICAL HISTORY: Right lower quadrant pain. TECHNIQUE: Imaging of the abdomen and pelvis was performed without intravenous contrast using standard technique, scanning from just above the dome of the diaphragm to the symphysis pubis. Unenhanced imaging is limited for the evaluation of some intra-abdominal and pelvic pathology. CT Dose Reduction Employed: One or more of the following individualized dose reduction techniques were utilized for this examination: 1. Automated exposure control 2. Adjustment of the mA and/or kV according to patient size 3. Use of iterative reconstruction technique. COMPARISON: 09/22/2020 FINDINGS: Visualized heart and lungs unremarkable. Liver, gallbladder, pancreas, spleen, adrenal glands, and kidneys unremarkable. Mildly filled urinary bladder. Enlarged left ovarian cyst measuring up to 6.3 cm, previously 4.0 cm. Multiple adjacent large cysts versus single large multilocular cyst, possibly originating from the right ovary. Hysterectomy. No dilated bowel. Mild diverticulosis in the distal colon without evidence of acute diverticulitis on limited noncontrast evaluation. Nondilated appendix. No abdominal aortic or iliac artery aneurysm. No evidence of acute osseous abnormality. IMPRESSION: No evidence of acute abdominopelvic abnormality. Cystic structures in the pelvis as described, likely ovarian in origin. Recommend transabdominal and transvaginal pelvic ultrasound for further evaluation. Electronically signed by: Shaun Zelaya DO (09/17/2021 12:19 PM) [id number] DICTATED AND SIGNED BY: SHAUN ZELAYA DO DATE: 09/17/21 1211 CC: KEESHA LEMUS APRN; GÓMEZ MORALES MD ~REASON: cysts in pelvis, recommending transvag by radiologist PROCEDURE: PELVIS COMPLETE US PELVIS COMPLETE History: Reason: cysts in pelvis, recommending transvag by radiologist / Spl. Instructions: / History: Comparison: CT September 17, 2021 Technique: Grayscale and color Doppler imaging of the pelvis was performed using transabdominal technique. Findings: Prior hysterectomy. Multiple complicated septated cysts within the pelvis. Discrete ovarian tissue is difficult to identify. Largest septated cyst measures 10.0 x 10.0 x 5.9 cm. Cyst within the left adnexa measures 8.9 x 5.0 x 5.4 cm. IMPRESSION: 1. Multiple complicated septated cysts within the pelvis, may represent hemorrhagic and simple ovarian cysts although cystic neoplasm is not excluded. Recommend correlation for infection. Also recommend ultrasound follow-up. Alternatively, MRI with and without contrast can further evaluate if persistent clinical concern. Electronically signed by: Trevor Montes DO (09/17/2021 2:25 PM) [id number] DICTATED AND SIGNED BY: TREVOR MONTES DO DATE: 09/17/21 1419 CC: KEESHA LEMUS APRN; GÓMEZ MORALES MD ~ (KEESHA LEMUS APRN) Heart Score: C/O Chest Pain: N/A Risk Factors: Risk Factors: DM, Current or recent (<one month) smoker, HTN, HLP, family history of CAD, obesity. Risk Scores: Score 0 - 3: 2.5% MACE over next 6 weeks - Discharge Home Score 4 - 6: 20.3% MACE over next 6 weeks - Admit for Clinical Observation Score 7 - 10: 72.7% MACE over next 6 weeks - Early Invasive Strategies (KEESHA LEMUS APRN) Course & Med Decision Making: Course & Med Decision Making Pertinent Labs and Imaging studies reviewed. (See chart for details) Patient presents to the emergency department for right lower quadrant pain that radiates into her groin that is worse with urination, intercourse and bowel movements. Work-up in the emergency department today consisted of blood work including lipase, urinalysis and CT imaging of abdomen and pelvis. Patient is allergic to iodine and does cause swelling therefore imaging was performed without contrast. Patient treated with IV fluids and pain medication. Patient's lab work is unremarkable, urinalysis not show any infection. CT scan of abdomen pelvis shows a left ovarian cyst and a cystic-like structure originating from the right ovary and the radiologist recommended pelvic ultrasound. This was performed and patient does have a cyst noted bilaterally with good blood flow to ovaries. Patient was given a copy of her ultrasound reports and she is advised to follow-up with RN CHRONIC as a cystic neoplasm cannot be ruled out. Patient's vital signs are stable she will be discharged home with pain medication I discussed with patient all findings and diagnostic testing as well as the need to follow-up with PCP for further evaluation and treatment or return to the ER if any new or worsening symptoms. Strict return precautions were also discussed at length. Patient voiced understanding and agreement with the plan. Patient is hemodynamically stable at the time of disposition. (KEESHA LEMUS APRN) Dragon Disclaimer: Dragon Disclaimer: This electronic medical record was generated, in whole or in part, using a voice recognition dictation system. (KEESHA LEMUS APRN) Attending Co-Sign The patient was seen and interviewed as well as examined at the bedside. The chart was reviewed. The case was discussed. Agree with the plan of care. (DAKOTA OWENS DO) Departure Departure: Impression: Primary Impression: Ovarian cyst Qualified Codes: N83.201 - Unspecified ovarian cyst, right side; N83.202 - Unspecified ovarian cyst, left side Disposition: HOME / SELF CARE / HOMELESS Condition: GOOD Referrals: GÓMEZ MORALES MD (PCP) АНДРЕЙ MONTES MD Patient Instructions: Ovarian Cyst Additional Instructions: You were seen in the emergency department today for pelvic pain. You are noted to have multiple cysts throughout your pelvis originating from your ovaries. Please take ibuprofen or naproxen at home for your pain. You are being discharged home with pain medication which is hydrocodone and Tylenol and a combination tablet. Do not take any additional Tylenol with this medication. This medication may cause sedation so do not take need to be alert, driving a vehicle or with alcohol. Follow-up with your primary care provider tomorrow regarding your ER visit. You will need to see a RN CHRONIC in 1 was attached to this paperwork if you do not already have one. Return to the emergency department if you develop worsening of your abdominal pain, high fevers refractory to treatment, intractable nausea or vomiting, vaginal bleeding or any new or worsening concerns. Scripts Hydrocodone Bit/Acetaminophen (HYDROCODONE-APAP 5-325 ) 1 Each Tablet 1 TAB PO PRN Q6HRS PRN for PAIN for 2 Days, #8 TAB 0 Refills Prov: KEESHA LEMUS OTR [employer]AN [employer] 09/17/21 KEESHA LEMUS OTR [employer] Sep 17, 2021 11:46 DAKOTA OWENS DO Sep 18, 2021 06:12
[2021-09-17 12:05] LABS: CLARITY,URINE CLEAR; COLOR,URINE YELLOW; GLUCOSE,URINE NEG (NEG)
[2021-09-17 12:06] LABS: BASO # 0.1 x10^3/uL (0.0-0.2); BASO % 1 % (0-3); EOS # 0.1 x10^3/uL (0.0-0.7); EOS % 2 % (0-3); HEMATOCRIT 38.2 % (36.0-47.0); HEMOGLOBIN 12.9 g/dL (12.0-15.5); LYMPH # 2.2 x10^3/uL (1.0-4.8); LYMPH % 32 % (24-48); MEAN CORPUSCULAR HEMOGLOBIN 31 pg (25-35); MEAN CORPUSCULAR HGB CONC 34 g/dL (31-37); MEAN CORPUSCULAR VOLUME 92 fL (79-100); MONO # 0.4 x10^3/uL (0.0-1.1); MONO % 6 % (0-9); NEUT # 4.1 x10^3uL (1.8-7.7); NEUT % 59 % (31-73); PLATELET COUNT 445 x10^3/uL (140-400); RED BLOOD COUNT 4.17 x10^6/uL (3.50-5.40); RED CELL DISTRIBUTION WIDTH 12.5 % (11.5-14.5)
[2021-09-17 12:06] LABS: BACTERIA,URINE FEW /HPF (0-FEW); NITRITE,URINE NEG (NEG); RBC,URINE 0 /HPF (0-2); SQUAMOUS EPITHELIAL CELL,UR FEW /LPF; UROBILINOGEN,URINE 0.2 mg/dL (0.2 mg/dL); WBC,URINE 0 /HPF (0-4)
[2021-09-17 12:15] LABS: CALCIUM 9.1 mg/dL (8.5-10.1); CREATININE 0.6 mg/dL (0.6-1.0); GFR 109.6
--- NOTE | 2021-09-17 12:21 | RAD ---
EXAMINATION: CT ABDOMEN+PELVIS WO CLINICAL HISTORY: Right lower quadrant pain. TECHNIQUE: Imaging of the abdomen and pelvis was performed without intravenous contrast using standar d technique, scanning from just above the dome of the diaphragm to the symphysis pubis. Unenhanced i maging is limited for the evaluation of some intra-abdominal and pelvic pathology. CT Dose Reduction Employed: One or more of the following individualized dose reduction techniques wer e utilized for this examination: 1. Automated exposure control 2. Adjustment of the mA and/or kV ac cording to patient size 3. Use of iterative reconstruction technique. COMPARISON: 09/22/2020 FINDINGS: Visualized heart and lungs unremarkable. Liver, gallbladder, pancreas, spleen, adrenal glands, and kidneys unremarkable. Mildly filled urinary bladder. Enlarged left ovarian cyst measuring up to 6.3 cm, previously 4.0 cm. Multiple adjacent large cysts versus single large multilocular cyst, possibly originating from the ri ght ovary. Hysterectomy. No dilated bowel. Mild diverticulosis in the distal colon without evidence of acute diverticulitis on limited noncontrast evaluation. Nondilated appendix. No abdominal aortic or iliac artery aneurysm. No evidence of acute osseous abnormality. IMPRESSION: No evidence of acute abdominopelvic abnormality. Cystic structures in the pelvis as described, likely ovarian in origin. Recommend transabdominal and transvaginal pelvic ultrasound for further evaluation. Electronically signed by: Shaun Lewis DO (09/17/2021 12:19 PM) [id number]
[2021-09-17 12:23] LABS: ALBUMIN 3.8 g/dL (3.4-5.0); ALBUMIN/GLOBULIN RATIO 1.2 (1.0-1.7); TOTAL BILIRUBIN 0.7 mg/dL (0.2-1.0); TOTAL PROTEIN 6.9 g/dL (6.4-8.2)
--- NOTE | 2021-09-17 14:28 | RAD ---
US PELVIS COMPLETE History: Reason: cysts in pelvis, recommending transvag by radiologist / Spl. Instructions: / Histor y: Comparison: CT September 17, 2021 Technique: Grayscale and color Doppler imaging of the pelvis was performed using transabdominal techn ique. Findings: Prior hysterectomy. Multiple complicated septated cysts within the pelvis. Discrete ovarian tissue is difficult to identi fy. Largest septated cyst measures 10.0 x 10.0 x 5.9 cm. Cyst within the left adnexa measures 8.9 x 5 .0 x 5.4 cm. IMPRESSION: 1. Multiple complicated septated cysts within the pelvis, may represent hemorrhagic and simple ovari an cysts although cystic neoplasm is not excluded. Recommend correlation for infection. Also recommen d ultrasound follow-up. Alternatively, MRI with and without contrast can further evaluate if persiste nt clinical concern. Electronically signed by: Trevor Montes DO (09/17/2021 2:25 PM) [id number]
[2021-09-17] MEDS ORDERED: HYDR-2155 PO (14:50)
[2021-09-17 15:01] VITALS: BP 130/84
== END 2021-09-17 15:12 | disposition home or self-care (01) ==
LOC: ER 11:15
DX: N83.201 Unspecified ovarian cyst, right side (principal); N83.202 Unspecified ovarian cyst, left side; F41.9 Anxiety disorder, unspecified; F32.9 Major depressive disorder, single episode, unspecified; K21.9 Gastro-esophageal reflux disease without esophagitis; Z87.891 Personal history of nicotine dependence; Z88.8 Allergy status to other drugs, medicaments and biological substances; Z91.040 Latex allergy status; Z88.1 Allergy status to other antibiotic agents; Z88.2 Allergy status to sulfonamides
CPT/HCPCS: 36415; 74176; 76856; 80053; 81001; 83690; 85025; 96361; 96374; 96375; 99285; J2060; J3010; J7030